=== PATIENT | female | born 1940 | race Caucasian/White ===

== ENCOUNTER 2021-09-07 15:15 | Inpatient (IN) | payer MEDICARE, BC, SELFPAY ==
[2021-09-07] VITALS (14 sets, daily range): BP systolic 107–138; BP diastolic 43–75; PULSE 71–89; RESP 15–31; TEMP 36.6–37.1; O2SAT 88–98; BMI 28.5
--- NOTE | ~2021-09-07 | CT_ITS ---
EXAMINATION: CT abdomen pelvis w con DATE: 09/07/2021 18:08 INDICATION: Right upper quadrant abdominal pain. Vomiting. Low-grade fever. History of bowel resectio n 5 years ago. TECHNIQUE: Computed tomography (CT) of the abdomen and pelvis was performed with 100 CC Omnipaque 350 intravenous contrast. Automated exposure control and iterative reconstruction technique were employe d. Exam dose: 569.56 mGy-cm total exam DLP. COMPARISON: None. FINDINGS: There is minimal atelectasis in the lower lung zones. Normal heart size. Prominent coronary artery calcifications. No pericardial or pleural effusion. Calcified right hilar and subcarinal lymph nodes. 1.3 x 1.7 cm right hepatic cyst. The gallbladder is present. No gallbladder wall thickening or pericholecystic fluid or fat stranding. No bile duct or pancreatic duct dilatation. No pancreatic mass lesion or calcification. Normal splen ic size. Normal morphology of the adrenal glands. 7 mm and a couple much smaller right renal cysts no urinary tract calculus or hydroureteronephrosis. There is atherosclerotic calcification of the abdominal aorta and iliac arteries but no aneurysm. No intraperitoneal or retroperitoneal or pelvic mass lesion or adenopathy or ascites is noted. There is a surgical anastomosis of the left colon. There is small bowel dilatation up to 3.6 cm diameter in the pelvic area. There are small bowel air-f luid levels. The distal ileum is decompressed, normal caliber. A focal zone of transition is suggeste d in the medial right lower abdomen. Differential diagnosis includes partial small bowel obstruction due to adhesions, adynamic ileus, enteritis. Multilevel severe degenerative disc disease of the lumbar spine. Rate 1 anterolisthesis at L4-5 due t o degenerative change at the apophyseal joints. IMPRESSION: Mild small bowel dilatation and air-fluid levels, possibly secondary to adhesions, sugge stion of a focal zone of transition in the medial right lower quadrant. Status post left colon resection 1.3 x 1.7 cm right hepatic cyst 7 mm and smaller right renal cysts Reviewed, dictated and finalized at [facility]. Reviewed, dictated and finalized at location A. ONAL BANKING ADVISOR IMPRESSION: Mild small bowel dilatation and air-fluid levels, possibly seconda ry to adhesions, suggestion of a focal zone of transition in the medial right l ower quadrant. Status post left colon resection 1.3 x 1.7 cm right hepatic cyst 7 mm and smaller right renal cysts
--- NOTE | ~2021-09-07 | XR_ITS ---
EXAMINATION: XR abdomen obstructive series EXAM DATE: 09/09/2021 05:57 INDICATION: Small bowel obstruction. TECHNIQUE: Frontal upright projection of the upper abdomen, frontal projection of the lower abdomen f or interpretation. Comparison is made to prior examination from 09/08/2021. FINDINGS: There is expected amount of colonic stool and gas. No small bowel dilation, nonobstructiv e bowel gas pattern. There are no suspicious calcifications identified. There is no organomegaly suspected. There is moderate to severe lumbar spondylosis. Mild lumbar levoscoliosis. There is no free intraperitoneal air. The lung bases are clear. IMPRESSION: Resolution of previously seen mildly dilated small bowel. Nonobstructive bowel gas patte rn. Reviewed, dictated and finalized at location B. O ENGINEERING TEACHER IMPRESSION: Resolution of previously seen mildly dilated small bowel. Nonobstr uctive bowel gas pattern.
--- NOTE | ~2021-09-07 | XR_ITS ---
EXAMINATION: XR abdomen obstructive series EXAM DATE: 09/08/2021 11:45 INDICATION: Abnormal CT scan. TECHNIQUE: Frontal projection of the upper abdomen, frontal projection lower abdomen/pelvis for inter pretation. There is no prior study for comparison. FINDINGS: No free intraperitoneal air. Several loops of mildly distended air-filled small bowel, ile us or partial obstruction. Expected amount of colonic stool and gas. Contrast within the bladder. Mil d to moderate lumbar levoscoliosis. Moderate to severe lumbar spondylosis. There is no organomegaly. IMPRESSION: Several mildly dilated small bowel loops, ileus or partial obstruction. Reviewed, dictated and finalized at location G. ICER INSTALLER IMPRESSION: Several mildly dilated small bowel loops, ileus or partial obstruc tion.
--- NOTE | ~2021-09-07 | XR_ITS ---
EXAMINATION: XR abdomen/kub 1V DATE: 09/10/2021 08:55 INDICATION: Small bowel obstruction. TECHNIQUE: A supine view of the abdomen on 2 radiographs was obtained. COMPARISON: CT abdomen and pelvis 09/07/2021 FINDINGS: There are no dilated loops of bowel. There is a paucity of stool in the colon. IMPRESSION: 1. Nonobstructive bowel gas pattern. Reviewed, dictated and finalized at location A. RY GOODS WORKER
--- NOTE | 2021-09-07 15:59 | ED.NAVMDI ---
HPI - Nausea/Vomiting/Diarrhea General Chief complaint: Nausea/Vomiting/Diarrhea Stated complaint: N/V/D Time Seen by Provider: 09/07/21 15:40 History of Present Illness HPI Narrative: History provided by son. Patient is a 81-year-old female presented the emergency room with complaints of multiple episodes of diarrhea and generalized weakness for the last 3 to 4 days. Patient has a history of vascular dementia. Reports that patient had a low-grade fever, decreased intake. Associated with right upper quadrant abdominal pain with a history of small bowel resection Related Data Home Medications Medication Instructions Recorded Confirmed Allergy Relief (loratadine) 09/07/21 amlodipine benzoate 09/07/21 divalproex 09/07/21 donepezil mg 09/07/21 escitalopram oxalate [Lexapro] mg 09/07/21 famotidine 09/07/21 lisinopril 09/07/21 memantine 09/07/21 Allergies Allergy/AdvReac Type Severity Reaction Status Date / Time azithromycin Allergy Unknown Verified 09/07/21 16:00 Review of Systems Review of Systems: CONSTITUTIONAL: Reports fever; denies chills, or sweats. EYES: Denies visual changes, redness, or discharge. ENT: Denies rhinorrhea, congestion, sore throat, or otalgia. CARDIOVASCULAR: Denies chest pain, palpitations, or edema. RESPIRATORY: Denies cough or dyspnea. GASTROINTESTINAL: Reports abdominal pain, nausea, vomiting, or diarrhea. GENITOURINARY: Denies dysuria or hematuria. SKIN: Denies rash or itching. MUSCULOSKELETAL: Denies back pain, joint pain, or myalgia. NEUROLOGIC: Denies headache, numbness, dizziness, or weakness. PSYCHIATRIC: Denies anxiety or depression. Exam Narrative: GENERAL: Well-appearing, well-nourished, and in no acute distress. HEAD: Normocephalic, atraumatic. EYES: PERRLA and EOMI. ENT: Nares clear, no rhinorrhea or epistaxis. Mucous membranes moist. Oropharynx without tonsillar hypertrophy exudate or other lesions. Bilateral TMs pearly [place]ura nonbulging NECK: Supple. No adenopathy or masses. No carotid bruits or JVD CHEST: Clear to auscultation. No respiratory distress. No wheezes rales or rhonchi HEART: Regular rate and rhythm. No murmur heard. Normal peripheral pulses. ABDOMEN: Soft, right upper quadrant tenderness, nondistended, normal active bowel sounds. EXTREMITIES: Normal range of motion. No edema. SKIN: Warm, dry, no rash. NEURO: No focal deficits. Alert and oriented x3. PSYCH: Normal mood and affect. Course Course Emergency Course: 1929: Dr. Vyas regarding patient's condition. Is agreeable with my plan of care to bring the patient in for observation with NG established, IV fluids. Vital Signs Vital signs: Vital Signs Temperature 36.7 C 09/07/21 15:22 Pulse Rate 89 09/07/21 15:22 Respiratory Rate 20 09/07/21 15:22 Blood Pressure 138/63 09/07/21 15:22 Pulse Oximetry 93 09/07/21 15:22 Temperature 36.7 C 09/07/21 15:22 Pulse Rate 75 09/07/21 18:22 Respiratory Rate 17 09/07/21 18:22 Blood Pressure 120/43 L 09/07/21 18:22 Pulse Oximetry 95 09/07/21 18:22 MDM - Nausea/Vomiting/Diarrhea MDM Narrative Medical decision making narrative: White count slightly elevated at 10.2. CMP shows a slightly azotemia. Otherwise unremarkable. CT scan shows a small bowel dilation and air-fluid levels possibly secondary to adhesions suggestive of small bowel obstruction in the right lower quadrant. Will admit patient to [facility] with an NG tube Lab Data Result diagrams: 09/07/21 16:03 09/07/21 16:03 Labs: Lab Results 09/07/21 09/07/21 09/07/21 Range/Units 16:03 16:03 16:03 WBC 10.2 H (4.5-10.0) K/mm3 RBC 4.49 (4.2-5.4) M/mm3 Hgb 14.0 (12.0-15.0) g/dL Hct 43.5 (37.0-47.0) % MCV 96.9 (80-100) fl MCH 31.2 (26-34) pg MCHC 32.2 (32-36) g/dl RDW 13.2 (11.5-14.5) % Plt Count 211 (150-375) k/mm3 MPV 10.9 H (7.4-10.4) fl Immature Gran % (Auto) 1.1 H (0-0.5) %
[2021-09-07 16:11] LABS: Basophils Absolute Auto 0.1 K/mm3 (0.0-0.1); Basophils Percent Auto 0.7 % (0.2-1.2); Eosinophils Absolute Auto 0.1 K/mm3 (0-0.3); Eosinophils Percent Auto 0.6 % (0-4.4); Hematocrit 43.5 % (37.0-47.0); Immature Granulocyte Absolute 0.11 K/mm3 (0.00-0.031); Immature Granulocyte Percent A 1.1 % (0-0.5); Lymphocytes Absolute Auto 2.95 K/mm3 (0.9-3.2); Lymphocytes Percent Auto 28.9 % (18.3-44.2); Mean Corpuscular HGB Conc 32.2 g/dl (32-36); Mean Corpuscular Hemoglobin 31.2 pg (26-34); Mean Corpuscular Volume 96.9 fl (80-100); Mean Platelet Volume 10.9 fl (7.4-10.4); Monocytes Absolute Auto 1.3 K/mm3 (0.1-0.6); Monocytes Percent Auto 12.8 % (2.6-8.5); Neutrophils Absolute Auto 5.7 K/mm3 (1.3-6.7); Neutrophils Percent Auto 55.9 % (45.5-73.1); Platelet Count Result 211 k/mm3 (150-375); Red Blood Count 4.49 M/mm3 (4.2-5.4); Red Cell Distribution Width 13.2 % (11.5-14.5); White Blood Count 10.2 K/mm3 (4.5-10.0)
[2021-09-07] MEDS: SODIUM CHLORIDE 0.9% IV 1,000 ML 250 ML IV CONT (16:19)
[2021-09-07 16:20] LABS: Alanine Aminotransferase 10 U/L (4-35); Albumin Level 3.9 g/dL (3.5-5.1); Alkaline Phosphatase 62 U/L (38-126); Anion Gap 11 mmol/L (8-16); Aspartate Amino Transferase 18 U/L (14-36); Bilirubin,Total 0.2 mg/dL (0.2-1.3); Blood Urea Nitrogen 33 mg/dL (7-17); Calcium 9.2 mg/dL (8.4-10.2); Carbon Dioxide 29 mmol/L (22-30); Chloride 100 mmol/L (98-107); Estimated CRCL calculation 33 ml/min; Estimated Glomerular Filt Rate 43; Glucose 94 mg/dL (65-110); Lipase 157 U/L (23-300); Potassium 3.1 mmol/L (3.4-5.0); Sodium 140 mmol/L (137-145)
[2021-09-07] MEDS: ONDANSETRON INJ 4 MG/2 ML VIAL IV PUSH (16:20)
[2021-09-07 16:25] LABS: Add Urine Microscopic? YES; Appearance Urine Clear (Clear); Bilirubin Urine Negative (Negative); Blood Urine Negative (Negative); Calcium Oxalate Crystals Urine Present /hpf; Color Urine Yellow (Yellow); Glucose Urine UA Negative (Negative); Ketones Urine 1+ mg/dL (Negative); Leukocyte Esterase Ur Negative LEU/UL (Negative); Mucus Urine Heavy /lpf; Nitrate Urine Negative (Negative); Protein Urine 2+ mg/dL (Negative); Squamous Epithelial Cell Urine Occasional /hpf (Few); Urobilinogen Urine Negative mg/dL (<2.0); WBC Urine 0-3 /hpf
[2021-09-07 16:48] LABS: Specific Grav Ur 1.035 (1.001-1.035)
--- NOTE | 2021-09-07 20:09 | PC.NURSE ---
attempted to insert NG tube with assistance to right nare without success. pt became very combative, verbally abusive, swing arms and tried to bite staff. dr castaneda notified and will hold off with insertion for now.
--- NOTE | 2021-09-07 20:29 | PM.IMHP ---
H&P: HPI History of Present Illness Date/Time: 09/07/21 20:29 Chief Complaint: Vomiting Narrative: 81-year-old female with past medical history of prior left colon resection, vascular dementia, depression GERD and hypertension who presented to the ER from [facility] via EMS due to 5 days a low-grade fever and vomiting. Patient is only oriented to name at baseline. She was complaining of abdominal pain on presentation to the ER. She is afebrile on presentation to the ER. She had no vomiting after arrival to the ER. CT of the abdomen pelvis with contrast demonstrate mild small bowel dilatation with air-fluid levels possibly secondary to adhesions with suggestion of focal zone of transition in the medial right lower quadrant. NG placement was attempted in the ER beat the patient became verbally and physically abusive with staff. Subsequently, NG tube was not placed. The patient points to her arm where her IV site is inserted when I ask her about having pain. However when I perform deep palpation the abdomen in the periumbilical region she has definite tenderness. Otherwise her abdomen is soft with normoactive bowel sounds. The patient is only oriented to her name. She will answer direct questions but is not carrying a conversation. 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 Smoking status: Unknown if ever smoked Alcohol intake: never Substance use: never Spiritual care concerns: No Meds Home Medications and Allergies Home Medications Medication Instructions Recorded Confirmed Type Allergy Relief (loratadine) 10 mg PO DAILY 09/07/21 09/07/21 History amlodipine benzoate 5 mg PO DAILY 09/07/21 09/07/21 History cholecalciferol (vitamin D3) 25 mcg PO DAILY 09/07/21 09/07/21 History [Vitamin D3] divalproex 125 mg PO TID 09/07/21 09/07/21 History donepezil 10 mg PO HS 09/07/21 09/07/21 History escitalopram oxalate [Lexapro] 10 mg PO DAILY 09/07/21 09/07/21 History famotidine 10 mg PO DAILY 09/07/21 09/07/21 History lisinopril 20 mg PO DAILY 09/07/21 09/07/21 History memantine 10 mg PO BID 09/07/21 09/07/21 History pentoxifylline 400 mg PO TID 09/07/21 09/07/21 History polyethylene glycol 3350 17 g PO DAILY 09/07/21 09/07/21 History pravastatin 60 mg PO HS 09/07/21 09/07/21 History quetiapine 50 mg PO BID 09/07/21 09/07/21 History Allergies Allergy/AdvReac Type Severity Reaction Status Date / Time azithromycin Allergy Unknown Verified 09/07/21 16:00 Vital Signs Vital Signs - 24 hr 09/07/21 15:22 09/07/21 15:31 09/07/21 15:46 Temperature 98.1 F Pulse Rate 89 86 86 Respiratory Rate 20 18 26 H Blood Pressure 138/63 129/71 123/63 Pulse Oximetry 93 93 93 09/07/21 16:01 09/07/21 16:16 09/07/21 16:31 Temperature Pulse Rate 85 87 86 Respiratory Rate 15 22 H 16 Blood Pressure 117/59 L 118/66 115/64 Pulse Oximetry 95 98 09/07/21 16:46 09/07/21 17:00 09/07/21 17:01 Temperature Pulse Rate 86 84 Respiratory Rate 17 18 31 H Blood Pressure 107/58 L 109/59 L Pulse Oximetry 8
--- NOTE | 2021-09-07 21:46 | ADMGEN ---
This patient, Albina Krueger, was admitted to Medical Room 343-01. Patient/family oriented to hospital policies and general routines including ID bracelet, bed and alarms, visiting hours, pain management, procedures, bathroom and other care routines, personal items, smoking policy, room service/diet, and visiting hours. Information on how to activate the Rapid Response Team has been discussed. Patient/Family are encouraged to report perceived risks to care and to ask questions if they do not understand what they are told or what they should do.
[2021-09-07] MEDS: SODIUM CHLORIDE 0.9% IV 1,000 ML 75 ML IV CONT (22:14)
[2021-09-08] VITALS (7 sets, daily range): BP systolic 131–159; BP diastolic 50–92; PULSE 64–73; RESP 16–22; TEMP 36.1–36.9; O2SAT 91–97
[2021-09-08] MEDS: POTASSIUM CHLORIDE INJ 40 MEQ in SODIUM CHLORIDE 0.9% IV 500 ML 100 MEQ IVPB (01:34)
[2021-09-08 05:57] LABS: Anion Gap 6 mmol/L (8-16); Blood Urea Nitrogen 30 mg/dL (7-17); Calcium 8.5 mg/dL (8.4-10.2); Carbon Dioxide 28 mmol/L (22-30); Chloride 106 mmol/L (98-107); Estimated CRCL calculation 39 ml/min; Estimated Glomerular Filt Rate 53; Glucose 86 mg/dL (65-110); Potassium 3.6 mmol/L (3.4-5.0); Sodium 140 mmol/L (137-145)
[2021-09-08] MEDS: SODIUM CHLORIDE 0.9% IV 1,000 ML 125 ML IV CONT ×2 (08:09→11:41)
--- NOTE | 2021-09-08 10:01 | PM.IMPN ---
Progress Note: A&P Assessment and Plan (1) Partial small bowel obstruction: Code(s): K56.600 - Partial intestinal obstruction, unspecified as to cause Status: Acute Assessment and Plan: Patient presents with diarrhea and weakness. CT scan showing mild small bowel dilatation with air-fluid levels possibly partial small-bowel obstruction. The transition point is in the right lower abdomen which correlates with her symptoms. Her symptoms have improved clinically. This may be enteritis given the fevers that were present prior to admission. She also has a history of ischemic bowel so would consider this in the etiology as well. No nausea or vomiting noted. She is refusing NG tube. Will repeat KUB. General surgery has been consulted. Continue NPO status at this time. Hold on antibiotics at this time. (2) Acute kidney injury: Code(s): N17.9 - Acute kidney failure, unspecified Status: Acute Assessment and Plan: Creatinine 1.2 on admission. With IV fluids creatinine has trended downward. Continue to monitor. Avoid nephrotoxic agents. (3) Dehydration: Code(s): E86.0 - Dehydration Status: Acute Assessment and Plan: Patient with dehydration related to her diarrhea. Renal function improving. Son states patient ?perked up? with fluids. Continue IV fluids. (4) Diarrhea: Qualifiers: Diarrhea type: unspecified type Qualified Code(s): R19.7 - Diarrhea, unspecified Code(s): R19.7 - Diarrhea, unspecified Status: Acute Assessment and Plan: Patient having diarrhea present on admission. This points more toward enteritis than partial small-bowel obstruction. Patient also having fevers prior to admission. Will follow clinically. Hold antibiotics at this time. (5) Hypokalemia: Code(s): E87.6 - Hypokalemia Status: Acute Assessment and Plan: Potassium mildly decreased at 3.1. This was replaced and potassium normal now. Continue to follow. (6) Vascular dementia: Code(s): F01.50 - Vascular dementia without behavioral disturbance Status: Inactive Assessment and Plan: Patient has a history of dementia with behavioral disturbance. She is on divalproex, Lexapro, Namenda and Seroquel. Will see what her KUB shows today. If this is showing normal bowel pattern, consider clear liquid diet and resuming some of her essential medications to prevent behavioral disturbance. If not, then will need IV divalproex. (7) DVT prophylaxis: Code(s): Z29.9 - Encounter for prophylactic measures, unspecified Status: Acute Assessment and Plan: Sheryl Barrera Date/time seen: 09/08/21 10:01 Interval history: 81yo female with dementia, COPD and HTN here for diarrhea, fever and generalized weakness. Assuming care. Chart reviewed. Patient is alert but confused thus unable to provide history. Son is in the room. Provides information that the patient had history bowel resection due to ischemic bowel. He also mentions that she was on B12 for her dementia but does not have a history of B12 deficiency. She does have a history of behavioral disorder related to her dementia. This is controlled with her medications. Patient refused NG tube last evening. Review of Systems Review of Systems: ROS unobtainable: Yes unobtainable due to mental status Exam Narrative: AF 98.4 147/92 73 22 97% ra Gen - NARD lying almost flat in bed Chest - CTA bilaterally, nml RR CV - RRR S1/S2 Abd -soft. Minimal tenderness. Positive bowel sounds. Ext - No pedal edema Neuro - Alert but confused Psych - Nml mood and affect. Pleasant and cooperative Skin - Warm and dry Objective Data Vital Signs Vital Signs: Vital Signs - 24 hr 09/07/21 15:22 09/07/21 15:31 09/07/21 15:46 Temperature 98.1 F Pulse Rate 89 86 86 Respiratory Rate 20 18 26 H Blood Pressure 138/63 129/71 123/63 Pulse Oximetry 9
[2021-09-08] MEDS: ENOXAPARIN 40 MG/0.4 ML SYRINGE SUB-Q (11:42)
[2021-09-08] MEDS: PANTOPRAZOLE SODIUM IV 40 MG VIAL IV PUSH (11:43)
--- NOTE | 2021-09-08 12:28 | PC.NURSE ---
On 09/08/21, the student, Marta Alonso, provided care and completed [email or web address] documentation on this patient. I have reviewed the student's documentation and agree with the findings.
--- NOTE | 2021-09-08 13:02 | PM.CNGS ---
Assessment and Plan Assessment and plan (1) Partial small bowel obstruction: Code(s): K56.600 - Partial intestinal obstruction, unspecified as to cause Status: Acute Assessment and Plan: Patient presented with vomiting, diarrhea, and low grade fevers. CT scan reviewed and discussed with her nephew. There is mildly dilated small bowel suggesting possible partial small bowel obstruction vs ileus vs enteritis. She does have a history of abdominal surgery that could cause intraabdominal adhesions, but given the diarrhea and fevers, this is more likely to be related to enteritis. Her abdomen is slightly distended with tenderness in the lower abdomen, but she has no peritoneal signs. We would recommend continuing to treat her conservatively. Will defer NG tube for now, and if she develops vomiting then we could consider trying to place an NG tube again. Her nephew feels that she may be more calm for NG placement if he is present, which we could try to coordinate if needed. She was complaining of nausea, so I kept her NPO. We could try clear liquids if she is no longer feeling nauseous. Obstructive series has also been done today, which still showed some mildly dilated loops of small bowel, but there is gas and stool noted in the colon. Will repeat plain films again tomorrow morning and monitor with serial abdominal exams. Encouraged staff to have her up to the chair and ambulate in the halls if tolerated. Thank you for allowing us to see the patient in consultation and we will continue to follow along with you. (2) Diarrhea: Qualifiers: Diarrhea type: unspecified type Qualified Code(s): R19.7 - Diarrhea, unspecified Code(s): R19.7 - Diarrhea, unspecified Status: Acute Assessment and Plan: Reportedly had diarrhea prior to admission, supporting the diagnosis of enteritis. She has not had any bowel movements since admission. If diarrhea returns, could consider stool studies. See plan above. (3) Dehydration: Code(s): E86.0 - Dehydration Status: Acute Assessment and Plan: Improving with IV fluid hydration. Likely related to the diarrhea and vomiting. Continue management per Hospitalist. Additional Plan I have discussed the patient's case and plan of care with Dr. Vyas. History of Present Illness Consult details Consult date: 09/08/21 Reason for consult: other (Possible partial small bowel obstruction) Requesting physician: Johnathan Pierre MD Narrative: This is a 81-year-old female with vascular dementia, HTN, and COPD, who resides at [facility] and was brought into the ER due to vomiting, diarrhea, and low-grade fever x 5 days. She is oriented to person at baseline and is unable to provide history. Her nephew and POA, Juan, is at the bedside and able to help assist in providing some history. The remaining information is obtained by review of her EMR. She was having vomiting and diarrhea over the past few days and had a reported fever of 99F. She was subsequently brought into the ER for evaluation. CT scan of the abdomen and pelvis showed mildly dilated small bowel with air-fluid levels with suggestion of a possible focal transition zone in the medial RLQ, suggesting possible partial small bowel obstruction, adynamic ileus, versus enteritis. Also noted is an anastomosis in the left colon, right hepatic cyst, and right renal cysts. Staff attempted to place an NG tube in the ER, but the patient became verbally and physically combative and the attempt was unsuccessful. She was admitted to the Hospitalist, made NPO, and started on IV fluids. Our service was consulted by the ED provider for possible partial small bowel obstruction. She is now seen on the medical floor. She does report lower abdominal pain, worse in the LLQ. She replies yes when asked if she is nauseated. Per nursing staff, she has not had any bowel movements or vomiting since admitted. Her nephew does note that she was passing a
[2021-09-08] MEDS: LORazepam INJ (*CRX) 2 MG/ML VIAL 0.5 MG IV PUSH (17:44)
[2021-09-08] MEDS: ONDANSETRON INJ 4 MG/2 ML VIAL IV PUSH (17:44)
[2021-09-09 00:03] VITALS: BP 148/67; PULSE 84; RESP 84; TEMP 36.7; O2SAT 19
[2021-09-09] MEDS: SODIUM CHLORIDE 0.9% IV 1,000 ML 125 ML IV CONT ×2 (03:05→11:06)
[2021-09-09 05:51] LABS: Basophils Absolute Auto 0.1 K/mm3 (0.0-0.1); Basophils Percent Auto 1.2 % (0.2-1.2); Eosinophils Absolute Auto 0.1 K/mm3 (0-0.3); Eosinophils Percent Auto 1.5 % (0-4.4); Hematocrit 40.4 % (37.0-47.0); Hemoglobin 13.1 g/dL (12.0-15.0); Immature Granulocyte Absolute 0.29 K/mm3 (0.00-0.031); Immature Granulocyte Percent A 3.9 % (0-0.5); Lymphocytes Percent Auto 24.4 % (18.3-44.2); Mean Corpuscular HGB Conc 32.4 g/dl (32-36); Mean Corpuscular Volume 95.7 fl (80-100); Mean Platelet Volume 11.1 fl (7.4-10.4); Monocytes Percent Auto 13.2 % (2.6-8.5); Neutrophils Absolute Auto 4.1 K/mm3 (1.3-6.7); Neutrophils Percent Auto 55.8 % (45.5-73.1); Platelet Count Result 179 k/mm3 (150-375); Red Blood Count 4.22 M/mm3 (4.2-5.4); Red Cell Distribution Width 12.5 % (11.5-14.5); White Blood Count 7.4 K/mm3 (4.5-10.0)
[2021-09-09 06:07] LABS: Albumin Level 3.2 g/dL (3.5-5.1); Alkaline Phosphatase 53 U/L (38-126); Anion Gap 6 mmol/L (8-16); Aspartate Amino Transferase 20 U/L (14-36); Bilirubin,Total 0.3 mg/dL (0.2-1.3); Blood Urea Nitrogen 19 mg/dL (7-17); Calcium 8.3 mg/dL (8.4-10.2); Carbon Dioxide 27 mmol/L (22-30); Chloride 106 mmol/L (98-107); Estimated CRCL calculation 48 ml/min; Estimated Glomerular Filt Rate > 60; Glucose 79 mg/dL (65-110); Magnesium 1.7 mg/dL (1.6-2.3); Potassium 3.5 mmol/L (3.4-5.0); Sodium 139 mmol/L (137-145)
[2021-09-09 06:18] VITALS: BP 154/64; PULSE 77; RESP 18; TEMP 35.4; O2SAT 93
[2021-09-09 06:28] LABS: Alanine Aminotransferase < 6 U/L (4-35)
[2021-09-09 07:04] LABS: Folic Acid 14.9 ng/mL (2.76->20)
[2021-09-09] MEDS: ENOXAPARIN 40 MG/0.4 ML SYRINGE SUB-Q (09:16)
[2021-09-09] MEDS: PANTOPRAZOLE SODIUM IV 40 MG VIAL IV PUSH (09:16)
--- NOTE | 2021-09-09 09:56 | PM.PNGS ---
Progress Note: A&P Assessment and Plan (1) Partial small bowel obstruction: Code(s): K56.600 - Partial intestinal obstruction, unspecified as to cause Status: Acute Assessment and Plan: Patient's daughter is at bedside this AM. She states that patient has had multiple problems with bowel obstructions in the past and thinks that at least one of her previous surgeries was related to this. Her xray looks improved today. Will give Dulcolax suppository. Allow ice chips for now and could consider clear liquids if bowels begin to move. Will get SBFT tomorrow if no significant improvement. Subjective Subjective Date/Time Seen: 09/09/21 09:56 Interval history: Minimal abdominal pain. No vomiting. Patient doesn't know if she's passing flatus or not. No BM's since being admitted. Exam GI: Inspection: non-distended GI Palp: Yes Soft to palpation, Yes Tenderness to palpation present (GI) (minimal generalized), No Guarding due to palpation present (GI) and No Rebound tenderness present Auscultation: Hypoactive bowel sounds present Objective Data Vital Signs Vital Signs: Vital Signs - 24 hr 09/08/21 11:54 09/08/21 16:58 09/08/21 20:00 Temperature 36.6 C 36.8 C Pulse Rate 66 64 64 Respiratory Rate 22 H 20 20 Blood Pressure 138/50 L 159/52 H Pulse Oximetry 91 96 96 09/08/21 23:34 09/09/21 00:03 09/09/21 06:18 Temperature 36.7 C 35.4 C L Pulse Rate 84 77 Respiratory Rate 84 H 18 Blood Pressure 148/67 H 154/64 H Pulse Oximetry 92 19 L 93 Intake/Output Intake/Output: Intake & Output 09/06/21 09/07/21 09/08/21 09/09/21 23:59 23:59 23:59 23:59 Intake Total 1999 0 Balance 1999 0 Meds/Results Medications: Active Medications Generic Name Dose Route Start Last Admin Trade Name Freq PRN Reason Stop Dose Admin Enoxaparin Sodium 40 mg 09/08/21 10:25 09/09/21 09:16 Enoxaparin 40 Mg/0.4 Ml Syringe SUB-Q 40 mg DAILY CHARBEL Administration Sodium Chloride 1,000 mls @ 125 mls/hr 09/07/21 19:10 09/09/21 03:50 Normal Saline Iv IV CONT Not Given .Q8H CHARBEL Lorazepam 0.5 mg 09/08/21 15:37 09/08/21 17:44 Lorazepam Inj (*Crx) 2 Mg/Ml Vial IV PUSH 0.5 mg Q6H PRN Administration Anxiety Ondansetron HCl 4 mg 09/07/21 20:08 09/08/21 17:44 Ondansetron Inj 4 Mg/2 Ml Vial IV PUSH 4 mg Q4H PRN Administration Nausea Pantoprazole Sodium 40 mg 09/09/21 09:00 09/09/21 09:16 Pantoprazole Sodium Iv 40 Mg Vial IV PUSH 40 mg QAM CHARBEL Administration Radiology Results: ITS Impressions Abdomen/Pelvis CT 09/07/21 18:44 IMPRESSION: Mild small bowel dilatation and air-fluid levels, possibly secondary to adhesions, suggestion of a focal zone of transition in the medial right lower quadrant. Status post left colon resection 1.3 x 1.7 cm right hepatic cyst 7 mm and smaller right renal cysts Abdomen X-Ray 09/09/21 09:12 IMPRESSION: Resolution of previously seen mildly dilated small bowel. Nonobstructive bowel gas pattern. Labs Labs: Laboratory Results - last 24 hr 09/09/21 09/09/21 05:14 05:14 WBC 7.4 RBC 4.22 Hgb 13.1 Hct 40.4 MCV 95.7 MCH 31.0 MCHC 32.4 RDW 12.5 Plt Count 179 MPV 11.1 H Immature Gran % (Auto) 3.9 H Neut % (Auto) 55.8 Lymph % (Auto) 24.4 [place] % (Auto) 13.2 H Eos % (Auto) 1.5 Baso % (Auto) 1.2 Lymph # (Auto) 1.80 [place] # (Auto) 1.0 H Eos # (Auto) 0.1 Baso # (Auto) 0.1 Abs Immat Gran (auto) 0.29 H Absolute Neuts (auto) 4.1 Absolute Nucleated RBC 0.0 Nucleated RBC % 0.0 Sodium 139 Potassium 3.5 Chloride 106 Carbon Dioxide 27 Anion Gap 6 L BUN 19 H D Creatinine 0.80 Estim Creat Clear Calc 48 Estimated GFR > 60 Glucose 79 Calcium 8.3 L Magnesium 1.7 Total Bilirubin 0.3 AST 20 ALT < 6 Alkaline Phosphatase 53 C-Reactive Protein 3.0 H Total Protein 6.0 L Albumin 3.2 L Vitamin B12 458.0 Folate 14.9
[2021-09-09] MEDS: BISACODYL 10 MG SUPPOSITORY RECTAL (11:06)
[2021-09-09 11:22] VITALS: O2SAT 93
--- NOTE | 2021-09-09 11:29 | WPDCDIQUERY2 ---
CDI Query Clarification Request -09/08 Partial small bowel obstruction, unspecified as to cause
--- NOTE | 2021-09-09 13:40 | PM.IMPN ---
Progress Note: A&P Assessment and Plan (1) Partial small bowel obstruction: Code(s): K56.600 - Partial intestinal obstruction, unspecified as to cause Status: Acute Assessment and Plan: Patient presents with diarrhea and weakness. CT scan showing mild small bowel dilatation with air-fluid levels possibly partial small-bowel obstruction. The transition point is in the right lower abdomen. This may be enteritis given the fevers that were present prior to admission. She also has a history of ischemic bowel so would consider this in the etiology as well. Repeat KUB showing resolution of the dilated SB. General surgery following and appreciate their input. Start clear liquids. Agree with suppository. Add back some home meds today as well. (2) Acute kidney injury: Code(s): N17.9 - Acute kidney failure, unspecified Status: Acute Assessment and Plan: Creatinine 1.2 on admission. With IV fluids creatinine has trended downward. Continue to monitor. Avoid nephrotoxic agents. (3) Dehydration: Code(s): E86.0 - Dehydration Status: Acute Assessment and Plan: Patient with dehydration related to her diarrhea. Renal function back to normal. Continue IV fluids until eating well. (4) Diarrhea: Qualifiers: Diarrhea type: unspecified type Qualified Code(s): R19.7 - Diarrhea, unspecified Code(s): R19.7 - Diarrhea, unspecified Status: Acute Assessment and Plan: Patient having diarrhea present on admission. This points more toward enteritis than partial small-bowel obstruction. Patient also having fevers prior to admission. Will follow clinically. No further diarrhea. Hold antibiotics at this time. (5) Hypokalemia: Code(s): E87.6 - Hypokalemia Status: Acute Assessment and Plan: Potassium was mildly decreased at 3.1 and was replaced. Potassium normal now. Continue to follow. (6) Vascular dementia: Code(s): F01.50 - Vascular dementia without behavioral disturbance Status: Inactive Assessment and Plan: Patient has a history of dementia with behavioral disturbance. She is on divalproex, Lexapro, Namenda and Seroquel. Her KUB today shows resolution of dilated SB. Will try to resume some of her essential medications to prevent behavioral disturbance. (7) DVT prophylaxis: Code(s): Z29.9 - Encounter for prophylactic measures, unspecified Status: Acute Assessment and Plan: Lovenox Subjective Date/time seen: 09/09/21 13:40 Interval history: 81yo female with dementia, COPD and HTN here for diarrhea, fever and generalized weakness. Patient is alert but confused thus unable to provide history. Niece in the room and case discussed. RN states no issues overngiht with the patient. Exam Narrative: AF 98.0 154/64 77 18 93% ra Gen - NARD lying almost flat in bed Chest - CTA bilaterally, nml RR CV - RRR S1/S2 Abd -soft. Pain in the LLQ. +BS Ext - No pedal edema Neuro - Alert but confused Psych - Nml mood and affect. Pleasant and cooperative Skin - Warm and dry Objective Data Vital Signs Vital Signs: Vital Signs - 24 hr 09/08/21 16:58 09/08/21 20:00 09/08/21 23:34 Temperature 98.2 F Pulse Rate 64 64 Respiratory Rate 20 20 Blood Pressure 159/52 H Pulse Oximetry 96 96 92 09/09/21 00:03 09/09/21 06:18 09/09/21 11:22 Temperature 98.0 F 95.7 F L Pulse Rate 84 77 Respiratory Rate 84 H 18 Blood Pressure 148/67 H 154/64 H Pulse Oximetry 19 L 93 93 Intake/Output Intake/Output: Intake & Output 09/06/21 09/07/21 09/08/21 09/09/21 23:59 23:59 23:59 23:59 Intake Total 1999 1000 Output Total 200 Balance 1999 800 Meds/Results Medications: Active Medications Generic Name Dose Route Start Last Admin Trade Name Freq PRN Reason Stop Dose Admin Enoxaparin Sodium 40 mg 09/08/21 10:25 09/09/21 09:16 Enoxaparin 40 Mg/0.4
[2021-09-09] MEDS: amLODIPine BESYLATE 5 MG TABLET PO (15:26)
[2021-09-09 15:33] VITALS: BP 166/71; PULSE 79; RESP 18; TEMP 36.7; O2SAT 96
[2021-09-09] MEDS: DIVALPROEX SODIUM DR 125 MG TABEC PO (17:03)
[2021-09-09 20:04] VITALS: RESP 18; O2SAT 97
[2021-09-09] MEDS: QUEtiapine FUMARATE 25 MG TABLET 50 MG PO (20:56)
[2021-09-09] MEDS: DONEPEZIL HCL 10 MG TABLET PO (20:56)
[2021-09-09] MEDS: MEMANTINE 10 MG TABLET PO (20:57)
[2021-09-09] MEDS: DIVALPROEX SODIUM DR 250 MG TABEC PO (20:57)
[2021-09-09] MEDS: SODIUM CHLORIDE 0.9% IV 1,000 ML 70 ML IV CONT (22:29)
[2021-09-10 00:08] VITALS: BP 126/78; PULSE 89; RESP 18; TEMP 36.6; O2SAT 100
[2021-09-10 05:23] LABS: Hematocrit 37.3 % (37.0-47.0); Hemoglobin 12.4 g/dL (12.0-15.0); Mean Corpuscular HGB Conc 33.2 g/dl (32-36); Mean Corpuscular Hemoglobin 30.7 pg (26-34); Mean Corpuscular Volume 92.3 fl (80-100); Mean Platelet Volume 10.7 fl (7.4-10.4); Platelet Count Result 180 k/mm3 (150-375); Red Blood Count 4.04 M/mm3 (4.2-5.4); Red Cell Distribution Width 12.1 % (11.5-14.5); White Blood Count 7.6 K/mm3 (4.5-10.0)
[2021-09-10 06:17] LABS: Albumin Level 3.1 g/dL (3.5-5.1); Anion Gap 4 mmol/L (8-16); Blood Urea Nitrogen 10 mg/dL (7-17); Calcium 8.1 mg/dL (8.4-10.2); Carbon Dioxide 28 mmol/L (22-30); Chloride 102 mmol/L (98-107); Estimated CRCL calculation 48 ml/min; Estimated Glomerular Filt Rate > 60; Glucose 103 mg/dL (65-110); Magnesium 1.5 mg/dL (1.6-2.3); Phosphorus 2.6 mg/dL (2.5-4.5); Sodium 134 mmol/L (137-145)
[2021-09-10] MEDS: ESCITALOPRAM OXALATE 10 MG TABLET PO (08:23)
[2021-09-10] MEDS: lisinopriL 10 MG TABLET PO (08:23)
[2021-09-10] MEDS: amLODIPine BESYLATE 5 MG TABLET PO (08:23)
[2021-09-10] MEDS: PANTOPRAZOLE SODIUM IV 40 MG VIAL IV PUSH (08:23)
[2021-09-10] MEDS: DIVALPROEX SODIUM DR 125 MG TABEC PO ×2 (08:23→17:29)
[2021-09-10] MEDS: MEMANTINE 10 MG TABLET PO ×2 (08:23→21:01)
[2021-09-10] MEDS: MAGNESIUM SULF 2 GM/WATER 50ML 2 GM/50 ML BAG IVPB (08:23)
[2021-09-10] MEDS: POTASSIUM CHLORIDE 20 MEQ PACKET (FOR LIQUID) 40 MEQ PO (08:23)
[2021-09-10] MEDS: ENOXAPARIN 40 MG/0.4 ML SYRINGE SUB-Q (08:24)
[2021-09-10] MEDS: QUEtiapine FUMARATE 25 MG TABLET 50 MG PO ×2 (08:24→21:01)
[2021-09-10 08:39] VITALS: BP 146/77; PULSE 68; RESP 20; TEMP 36.7; O2SAT 97
--- NOTE | 2021-09-10 12:11 | PM.PNGS ---
Progress Note: A&P Assessment and Plan (1) Partial small bowel obstruction: Code(s): K56.600 - Partial intestinal obstruction, unspecified as to cause Status: Acute Assessment and Plan: KUB this morning showed nonobstructive bowel gas pattern. Flatus but no BM yet. Continue clear liquids. Stimulate bowels, will start Miralax. Additional Plan I have discussed the plan of care with Dr. Vyas. Subjective Subjective Date/Time Seen: 09/10/21 10:11 Patient reports: flatus and no bowel movement Interval history: Patient seen and examined this morning with no family at the bedside. Patient has dementia and is unable to provide history. Per nursing, she has tolerated clear liquids for dinner last night and this morning for breakfast. Nursing reports hearing the patient passing gas today but no BM yet. Review of Systems Review of Systems: ROS unobtainable: Yes unobtainable due to medical condition Exam Const: General: comfortable, no acute distress and alert Orientation/consciousness: oriented to person, No oriented to place and No oriented to time GI: Inspection: non-distended GI Palp: Yes Soft to palpation, Yes Tenderness to palpation present (GI) (minimal, diffuse), No Guarding due to palpation present (GI) and No Rebound tenderness present Auscultation: Hypoactive bowel sounds present Psych: Insight: Limited insight present (Psych) Objective Data Vital Signs Vital Signs: Vital Signs - 24 hr 09/09/21 15:33 09/09/21 20:04 09/10/21 00:08 Temperature 98.1 F 97.8 F Pulse Rate 79 89 Respiratory Rate 18 18 18 Blood Pressure 166/71 H 126/78 Pulse Oximetry 96 97 100 09/10/21 08:39 Temperature 98.0 F Pulse Rate 68 Respiratory Rate 20 Blood Pressure 146/77 H Pulse Oximetry 97 Intake/Output Intake/Output: Intake & Output 09/07/21 09/08/21 09/09/21 09/10/21 23:59 23:59 23:59 23:59 Intake Total 1999 2120 75 Output Total 200 600 Balance 1999 1920 -525 Meds/Results Medications: Active Medications Generic Name Dose Route Start Last Admin Trade Name Freq PRN Reason Stop Dose Admin Amlodipine Besylate 5 mg 09/09/21 14:00 09/10/21 08:23 Amlodipine Besylate 5 Mg Tablet PO 5 mg DAILY CHARBEL Administration Divalproex Sodium 250 mg 09/09/21 21:00 09/09/21 20:[address] 250 Mg Tabec PO 250 mg HS CHARBEL Administration Divalproex Sodium 125 mg 09/09/21 17:00 09/10/21 08:[address] 125 Mg Tabec PO 125 mg BID CHARBEL Administration Donepezil HCl 10 mg 09/09/21 21:00 09/09/21 20:56 Donepezil Hcl 10 Mg Tablet PO 10 mg HS CHARBEL Administration Enoxaparin Sodium 40 mg 09/08/21 10:25 09/10/21 08:24 Enoxaparin 40 Mg/0.4 Ml Syringe SUB-Q 40 mg DAILY CHARBEL Administration Escitalopram Oxalate 10 mg 09/10/21 09:00 09/10/21 08:23 Escitalopram Oxalate 10 Mg Tablet PO 10 mg DAILY CHARBEL Administration Lisinopril 10 mg 09/10/21 09:00 09/10/21 08:23 Lisinopril 10 Mg Tablet PO 10 mg DAILY CHARBEL Administration Lorazepam 0.5 mg 09/08/21 15:37 09/08/21 17:44 Lorazepam Inj (*Crx) 2 Mg/Ml Vial IV PUSH 0.5 mg Q6H PRN Administration Anxiety Memantine 10 mg 09/09/21 21:00 09/10/21 08:23 Memantine 10 Mg Tablet PO 10 mg Q12HR CHARBEL Administration Pantoprazole Sodium 40 mg 09/09/21 09:00 09/10/21 08:23 Pantoprazole Sodium Iv 40 Mg Vial IV PUSH 40 mg QAM CHARBEL Administration Quetiapine Fumarate 50 mg 09/09/21 21:00 09/10/21 08:24 Quetiapine Fumarate 25 Mg Tablet PO 50 mg Q12HR CHARBEL Administration Radiology Results: ITS Impressions Abdomen/Pelvis CT 09/07/21 18:44 IMPRESSION: Mild small bowel dilatation and air-fluid levels, possibly secondary to adhesions, suggestion of a focal zone of transition in the medial right lower quadrant. Status post left colon resection 1.3 x 1.7 cm right hepatic cyst 7 mm and smaller right renal cysts Abdomen X-Ray 09/10/21 08:56
[2021-09-10] MEDS: polyethylene glycoL 3350 17 GM POWD.PACK PO (14:04)
[2021-09-10 14:59] VITALS: O2SAT 93
--- NOTE | 2021-09-10 15:52 | PM.IMPN ---
Progress Note: A&P Assessment and Plan (1) Partial small bowel obstruction: Code(s): K56.600 - Partial intestinal obstruction, unspecified as to cause Status: Acute Assessment and Plan: Patient presents with diarrhea and weakness. CT scan showing mild small bowel dilatation with air-fluid levels possibly partial small-bowel obstruction. The transition point is in the right lower abdomen. This may be enteritis given the fevers and diarrhea. She also has a history of ischemic bowel so would consider this in the etiology as well. Repeat KUB today showing nonobstructive bowel gas pattern. General surgery following and appreciate their input. Continue clear liquids. Follow. (2) Acute kidney injury: Code(s): N17.9 - Acute kidney failure, unspecified Status: Acute Assessment and Plan: Creatinine 1.2 on admission. With IV fluids creatinine has normalized. Continue to monitor. Avoid nephrotoxic agents. (3) Dehydration: Code(s): E86.0 - Dehydration Status: Acute Assessment and Plan: Patient with dehydration related to her diarrhea. Renal function back to normal. Okay to stop IV fluids (4) Diarrhea: Qualifiers: Diarrhea type: unspecified type Qualified Code(s): R19.7 - Diarrhea, unspecified Code(s): R19.7 - Diarrhea, unspecified Status: Acute Assessment and Plan: Patient was having diarrhea prior to admission. This points more toward enteritis than partial small-bowel obstruction. Patient also having fevers prior to admission. No further diarrhea. Hold antibiotics at this time. Will follow clinically. (5) Hypokalemia: Code(s): E87.6 - Hypokalemia Status: Acute Assessment and Plan: Potassium was mildly decreased at 3.1 and was replaced. Potassium low again and replacement ordered. Mag low as well and replaced. Continue to follow. (6) Vascular dementia: Code(s): F01.50 - Vascular dementia without behavioral disturbance Status: Inactive Assessment and Plan: Patient has a history of dementia with behavioral disturbance. She is on divalproex, Lexapro, Namenda and Seroquel at home and these have annabel resumed. Mood stable. (7) DVT prophylaxis: Code(s): Z29.9 - Encounter for prophylactic measures, unspecified Status: Acute Assessment and Plan: Lovenox Subjective Date/time seen: 09/10/21 15:52 Interval history: 81yo female with dementia, COPD and HTN here for diarrhea, fever and generalized weakness. Patient alert but confused. Tolerating clear liquid. No bowel movements. Review of Systems Review of Systems: ROS unobtainable: Yes unobtainable due to mental status Exam Narrative: AF 98.0 146/77 68 20 97% ra Gen - NARD Chest - CTA bilaterally, nml RR CV - RRR S1/S2 Abd -soft. Pain in the lower abdomen. Ext - No pedal edema Neuro - Alert but confused Psych - Nml mood and affect. Skin - Warm and dry Objective Data Vital Signs Vital Signs: Vital Signs - 24 hr 09/09/21 20:04 09/10/21 00:08 09/10/21 08:39 Temperature 97.8 F 98.0 F Pulse Rate 89 68 Respiratory Rate 18 18 20 Blood Pressure 126/78 146/77 H Pulse Oximetry 97 100 97 09/10/21 14:59 Temperature Pulse Rate Respiratory Rate Blood Pressure Pulse Oximetry 93 Intake/Output Intake/Output: Intake & Output 09/07/21 09/08/21 09/09/21 09/10/21 23:59 23:59 23:59 23:59 Intake Total 1999 2120 1145 Output Total 200 600 Balance 1999 1920 545 Meds/Results Medications: Active Medications Generic Name Dose Route Start Last Admin Trade Name Freq PRN Reason Stop Dose Admin Amlodipine Besylate 5 mg 09/09/21 14:00 09/10/21 08:23 Amlodipine Besylate 5 Mg Tablet PO 5 mg DAILY CHARBEL Administration Divalproex Sodium 250 mg 09/09/21 21:00 09/09/21 20:[address] 250 Mg Tabec PO 250 mg HS CHARBEL Administration Divalproex Sodium 1
[2021-09-10 16:35] VITALS: BP 138/69; PULSE 65; RESP 20; TEMP 36.8; O2SAT 97
[2021-09-10 20:17] VITALS: O2SAT 91
[2021-09-10] MEDS: DONEPEZIL HCL 10 MG TABLET PO (21:01)
[2021-09-10] MEDS: DIVALPROEX SODIUM DR 250 MG TABEC PO (21:01)
[2021-09-10 21:03] VITALS: BP 149/86; PULSE 69; RESP 16; TEMP 36.3; O2SAT 95
[2021-09-11 05:34] LABS: Anion Gap 3 mmol/L (8-16); Blood Urea Nitrogen 7 mg/dL (7-17); Calcium 8.1 mg/dL (8.4-10.2); Carbon Dioxide 30 mmol/L (22-30); Chloride 103 mmol/L (98-107); Estimated CRCL calculation 43 ml/min; Estimated Glomerular Filt Rate 60; Glucose 96 mg/dL (65-110); Potassium 3.3 mmol/L (3.4-5.0); Sodium 136 mmol/L (137-145)
[2021-09-11 06:31] VITALS: BP 152/64; PULSE 57; RESP 16; TEMP 36.5; O2SAT 94
[2021-09-11 08:00] VITALS: PULSE 57; RESP 16; O2SAT 94
--- NOTE | 2021-09-11 08:09 | PM.PNGS ---
Progress Note: A&P Assessment and Plan (1) Partial small bowel obstruction: Code(s): K56.600 - Partial intestinal obstruction, unspecified as to cause Status: Acute Assessment and Plan: Patient tolerating diet. Stimulate bowels prn. OK to discharge from surgical standpoint. Subjective Subjective Date/Time Seen: 09/11/21 08:09 Interval history: Patient tolerating diet. No complaints this morning, but unable to give any consistent history of symptoms or bowel function. Exam GI: Inspection: non-distended GI Palp: Yes Soft to palpation, No Tenderness to palpation present (GI) and No Guarding due to palpation present (GI) Objective Data Vital Signs Vital Signs: Vital Signs - 24 hr 09/10/21 08:39 09/10/21 14:59 09/10/21 16:35 Temperature 36.7 C 36.8 C Pulse Rate 68 65 Respiratory Rate 20 20 Blood Pressure 146/77 H 138/69 Pulse Oximetry 97 93 97 09/10/21 20:17 09/10/21 21:03 09/11/21 06:31 Temperature 36.3 C L 36.5 C Pulse Rate 69 57 L Respiratory Rate 16 16 Blood Pressure 149/86 H 152/64 H Pulse Oximetry 91 95 94 Intake/Output Intake/Output: Intake & Output 09/08/21 09/09/21 09/10/21 09/11/21 23:59 23:59 23:59 23:59 Intake Total 1999 2120 1165 Output Total 200 1600 Balance 1999 5310 -167 Meds/Results Medications: Active Medications Generic Name Dose Route Start Last Admin Trade Name Freq PRN Reason Stop Dose Admin Amlodipine Besylate 5 mg 09/09/21 14:00 09/10/21 08:23 Amlodipine Besylate 5 Mg Tablet PO 5 mg DAILY CHARBEL Administration Bisacodyl 10 mg 09/11/21 07:43 Bisacodyl 10 Mg Suppository RECTAL QAM PRN Constipation Divalproex Sodium 250 mg 09/09/21 21:00 09/10/21 21:[address] 250 Mg Tabec PO 250 mg HS CHARBEL Administration Divalproex Sodium 125 mg 09/09/21 17:00 09/10/21 17:[address] 125 Mg Tabec PO 125 mg BID CHARBEL Administration Donepezil HCl 10 mg 09/09/21 21:00 09/10/21 21:01 Donepezil Hcl 10 Mg Tablet PO 10 mg HS CHARBEL Administration Enoxaparin Sodium 40 mg 09/08/21 10:25 09/10/21 08:24 Enoxaparin 40 Mg/0.4 Ml Syringe SUB-Q 40 mg DAILY CHARBEL Administration Escitalopram Oxalate 10 mg 09/10/21 09:00 09/10/21 08:23 Escitalopram Oxalate 10 Mg Tablet PO 10 mg DAILY CHARBEL Administration Lisinopril 20 mg 09/11/21 09:00 Lisinopril 20 Mg Tablet PO DAILY CHARBEL Lorazepam 0.5 mg 09/08/21 15:37 09/08/21 17:44 Lorazepam Inj (*Crx) 2 Mg/Ml Vial IV PUSH 0.5 mg Q6H PRN Administration Anxiety Memantine 10 mg 09/09/21 21:00 09/10/21 21:01 Memantine 10 Mg Tablet PO 10 mg Q12HR CHARBEL Administration Pantoprazole Sodium 40 mg 09/11/21 09:00 Pantoprazole 40 Mg Tablet PO QAM CHARBEL Polyethylene Glycol 17 gm 09/10/21 12:30 09/10/21 14:04 Polyethylene Glycol 3350 17 Gm Powd.Pack PO 17 gm QAM CHARBEL Administration Quetiapine Fumarate 50 mg 09/09/21 21:00 09/10/21 21:01 Quetiapine Fumarate 25 Mg Tablet PO 50 mg Q12HR CHARBEL Administration Radiology Results: ITS Impressions Abdomen/Pelvis CT 09/07/21 18:44 IMPRESSION: Mild small bowel dilatation and air-fluid levels, possibly secondary to adhesions, suggestion of a focal zone of transition in the medial right lower quadrant. Status post left colon resection 1.3 x 1.7 cm right hepatic cyst 7 mm and smaller right renal cysts Abdomen X-Ray 09/10/21 08:56 IMPRESSION: 1. Nonobstructive bowel gas pattern. Labs Labs: Laboratory Results - last 24 hr 09/11/21 04:54 Sodium 136 L Potassium 3.3 L Chloride 103 Carbon Dioxide 30 Anion Gap 3 L BUN 7 Creatinine 0.90 Estim Creat Clear Calc 43 Estimated GFR 60 Glucose 96 Calcium 8.1 L Magnesium 2.0 Quality VTE Prophylaxis VTE prophylaxis: mechanical ordered (SCDs)
[2021-09-11] MEDS: POTASSIUM CHLORIDE 20 MEQ PACKET (FOR LIQUID) 40 MEQ PO (09:14)
[2021-09-11] MEDS: QUEtiapine FUMARATE 25 MG TABLET 50 MG PO (09:16)
[2021-09-11] MEDS: amLODIPine BESYLATE 5 MG TABLET PO (09:16)
[2021-09-11] MEDS: MEMANTINE 10 MG TABLET PO (09:17)
[2021-09-11] MEDS: DIVALPROEX SODIUM DR 125 MG TABEC PO (09:17)
[2021-09-11] MEDS: PANTOPRAZOLE 40 MG TABLET PO (09:17)
[2021-09-11] MEDS: ESCITALOPRAM OXALATE 10 MG TABLET PO (09:17)
[2021-09-11] MEDS: ENOXAPARIN 40 MG/0.4 ML SYRINGE SUB-Q (09:18)
[2021-09-11] MEDS: lisinopriL 20 MG TABLET PO (09:18)
[2021-09-11] MEDS: polyethylene glycoL 3350 17 GM POWD.PACK PO (09:19)
--- NOTE | 2021-09-11 11:12 | PM.DS ---
DS: Admitting Diagnosis Discharge Date 09/11/21 Admitting Diagnosis Diarrhea, fever and generalized weakness. DS: Discharge Diagnosis Discharge Diagnosis (1) Partial small bowel obstruction: Code(s): K56.600 - Partial intestinal obstruction, unspecified as to cause Status: Acute Assessment and Plan: Patient presents with diarrhea and weakness. CT scan of the abdomen and pelvis showing mild small bowel dilatation with air-fluid levels possibly partial small-bowel obstruction versus enteritis. The transition point is in the right lower abdomen. This may be enteritis given the fevers and diarrhea. She also has a history of ischemic bowel so this was considered as well. Repeat KUB showing nonobstructive bowel gas pattern. General surgery was consulted and appreciate their input. She was started on clear liquid diet. We instituted a bowel regiment. She began to pass stool. Abdominal pain resolved. We advanced her diet which she tolerated well. (2) Acute kidney injury: Code(s): N17.9 - Acute kidney failure, unspecified Status: Acute Assessment and Plan: Creatinine was 1.2 on admission. With IV fluids creatinine has normalized. Related to dehydration from diarrhea. (3) Dehydration: Code(s): E86.0 - Dehydration Status: Acute Assessment and Plan: Patient with dehydration related to her diarrhea. Renal function back to normal. (4) Diarrhea: Qualifiers: Diarrhea type: unspecified type Qualified Code(s): R19.7 - Diarrhea, unspecified Code(s): R19.7 - Diarrhea, unspecified Status: Acute Assessment and Plan: Patient was having diarrhea prior to admission. This points more toward enteritis than partial small-bowel obstruction. Patient also having fevers prior to admission. No further diarrhea. She was not treated with antibiotics. When stool function improved, she was not having diarrhea. (5) Hypokalemia: Code(s): E87.6 - Hypokalemia Status: Acute Assessment and Plan: Potassium was low and replacement ordered. Mag low as well and replaced. (6) Vascular dementia: Code(s): F01.50 - Vascular dementia without behavioral disturbance Status: Inactive Assessment and Plan: Patient has a history of dementia with behavioral disturbance. She is on divalproex, Lexapro, Namenda and Seroquel at home and these were able to be resumed once she was taking clear liquids. Mood remained stable and there was no behavioral disturbance during hospital course. DS: Summary Hospital Course Reason for hospitalization: 81yo female with dementia, COPD and HTN here for diarrhea, fever and generalized weakness. Please see H&P for details Hospital Course: Please see above for details of hospital course. Status at Discharge Cognitive/behavioral status at discharge: Stable Time Spent with Patient Time attestation: Total time spent providing and/or coordinating discharge services: 35 minutes Time spent: Greater than 30 minutes Specific discharge activities: Discussed with nephew. All questions answered. Exam Narrative: AF 97.7 152/64 57 16 94% ra Gen - NARD Chest -lungs clear anteriorly. CV - RRR S1/S2 Abd -soft. Nontender. Nondistended. Positive bowel sounds Ext - No pedal edema Neuro - Alert but confused Psych - Nml mood and affect. Skin - Warm and dry DS: Data Data Completed and Pending Labs on day of discharge: Labs from last 24 hours 09/11/21 04:54 Sodium 136 L Potassium 3.3 L Chloride 103 Carbon Dioxide 30 Anion Gap 3 L BUN 7 Creatinine 0.90 Estim Creat Clear Calc 43 Estimated GFR 60 Glucose 96 Calcium 8.1 L Magnesium 2.0 Discharge Plan Discharge Attending physician on discharge: Heath Hernandez Consulting providers: Esdras Vyas Discharging Clinician: Heath Hernandez Anticipated Discharge Date/Time: 0
[2021-09-11 12:48] LABS: EDCOVIDSCREEN Negative (Negative)
[2021-09-11 14:00] VITALS: BP 136/67; PULSE 85; RESP 18; TEMP 36.2; O2SAT 96
== END 2021-09-11 14:38 | DRG 392 ==
LOC: ANHED 19:12 → ANH3MED 20:46
PROVIDERS: Emergency Medicine; Admitting Provider Internal Medicine; Emergency Provider Nurse Practitioner Family; PCP Nurse Practitioner Family; Visit Provider Internal Medicine
DX: K52.9 Noninfective gastroenteritis and colitis, unspecified (principal); N17.9 Acute kidney failure, unspecified; I10 Essential (primary) hypertension; Z20.822 Contact with and (suspected) exposure to COVID-19; Z90.49 Acquired absence of other specified parts of digestive tract; F01.50 Vascular dementia, unspecified severity, without behavioral disturbance, psychotic disturbance, mood disturbance, and anxiety; F32.9 Major depressive disorder, single episode, unspecified; K21.9 Gastro-esophageal reflux disease without esophagitis; J44.9 Chronic obstructive pulmonary disease, unspecified; I25.10 Atherosclerotic heart disease of native coronary artery without angina pectoris; E78.5 Hyperlipidemia, unspecified; E87.6 Hypokalemia; Z29.9 Encounter for prophylactic measures, unspecified; Z79.899 Other long term (current) drug therapy; Z88.1 Allergy status to other antibiotic agents; R50.9 Fever, unspecified
CPT/HCPCS: 36415; 74018; 74019; 74177; 80048; 80053; 80069; 81001; 82607; 82746; 83690; 83735; 85025; 85027; 86140; 87426; 96361; 96372; 96374; 96375; 99285; A9270; C9113; C9803; G0378; J1650; J2060; J2405; J3475; J3480; J7030; J7040; Q9967

== ENCOUNTER 2024-06-21 21:03 | Emergency (ER) | payer OTHER, MEDICARE, SELFPAY ==
[2024-06-21] VITALS (7 sets, daily range): BP systolic 176–207; BP diastolic 75–138; PULSE 70–82; RESP 10–22; TEMP 36.4–37.4; O2SAT 95–99
--- NOTE | 2024-06-21 22:48 | ED_ITS ---
HPI - Nausea/Vomiting/Diarrhea General Chief complaint: Nausea/Vomiting/Diarrhea Stated complaint: Altered LOC from [place] Time Seen by Provider: 06/21/24 22:20 History of Present Illness HPI Narrative: Patient is an 84-year-old female who presents to the ER with concerns of vomiting and diarrhea. Her nephew is with her during time of exam and he reports there was not a nurse at her memory care unit this evening so the accounting manager assistant controller called the EMS after patient started vomiting and having diarrhea for about 5 hours. Patient's nephew reports she has had dementia since 2018 and was recently placed on hospice. He reports hospice was initiated because patient had stopped taking her medications. Patient's nephew reports patient is usually pleasantly confused but tonight she has been combative. He is unaware of any recent fevers, congestion, or coughing. Patient's nephew reports this GI bug has been going around the memory care unit. Related Data Home Medications ?Medication ?Instructions ?Recorded ?Confirmed ?Last Taken ?Type Allergy Relief (loratadine) 10 mg PO DAILY 09/07/21 09/07/21 Unknown History amlodipine benzoate 5 mg PO DAILY 09/07/21 09/07/21 Unknown History cholecalciferol (vitamin D3) 25 25 mcg PO DAILY 09/07/21 09/07/21 Unknown History mcg (1,000 unit) tablet (Vitamin D3) divalproex 125 mg PO TID 09/07/21 09/07/21 Unknown History donepezil 10 mg tablet 10 mg PO HS 09/07/21 09/07/21 Unknown History escitalopram oxalate 10 mg tablet 10 mg PO DAILY 09/07/21 09/07/21 Unknown History (Lexapro) famotidine 10 mg tablet 10 mg PO DAILY 09/07/21 09/07/21 Unknown History lisinopril 20 mg tablet 20 mg PO DAILY 09/07/21 09/07/21 Unknown History memantine 10 mg PO BID 09/07/21 09/07/21 Unknown History pentoxifylline 400 mg 400 mg PO TID 09/07/21 09/07/21 Unknown History tablet,extended release polyethylene glycol 3350 17 gram 17 g PO DAILY 09/07/21 09/07/21 Unknown History oral powder packet pravastatin 40 mg tablet 60 mg PO HS 09/07/21 09/07/21 Unknown History quetiapine 50 mg PO BID 09/07/21 09/07/21 Unknown History Allergies Allergy/AdvReac Type Severity Reaction Status Date / Time azithromycin Allergy Unknown Verified 09/07/21 16:00 Review of Systems Review of Systems: All systems reviewed & are unremarkable except as noted in HPI and below PMFSH Past Medical History Medical History Atherosclerotic heart disease Hyperlipidemia 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 Her nephew, Juan, is her durable healthcare POA. He reports she is independent in activity and ambulation at baseline. She is oriented x 1 at baseline. She is a DNR. Smoking status: Unknown if ever smoked Alcohol intake: never Substance use: never Living arrangements: other Occupation/Education: retired Gender identity (if verbalized by the patient): Female Spiritual care concerns: No Exam Narrative: GENERAL: Ill-appearing as evidenced by occasional grimacing, well-nourished, non-toxic, in no acute distress. HEAD: Normocephalic, atraumatic. NECK: Supple. No adenopathy, no masses. RESPIRATORY: Airway patent, respirations nonlabored. Clear to auscultation bilaterally, no rales, rhonchi, wheezing. CARDIOVASCULAR: Regular rate and rhythm without murmurs, rubs, or gallops. Peripheral pulses 2+ and equal bilaterally. ABDOMINAL: Soft, nontender with palpation, nondistended, no hepatosplenomegaly. Normoactive BS. MUSCULOSKELETAL: Moves all extremities. Strength/ROM intact without gross deformities. SKIN: Warm, dry, normal color. No rashes. NEURO: A&O X 1. Speech clear. No ataxic movements. PSYCHIATRIC: Minimal interaction with staff during time of examination. Course Vital Signs Vital signs: Vital Signs Temperature 36.7 C 06/21/24 21:00 Pulse Rate 82 06/21/24 21:00 Respiratory Rate 22 H 06/21/24 21:00 Blood Pressure 176/138 H 06/21/24 21:00 Pulse Oximetry 98 06/21/24 21:00 Oxygen Delivery Room Air 06/21/24 21:00 Temperature 36.5 C 06/22/24 02:14 Pulse Rate 71 06/22/24 02:14 Respiratory Rate 18 06/22/24 02:14 Blood Pressure 158/83 H 06/22/24 02:14 Pulse Oximetry 99 06/22/24 02:14 Oxygen Delivery Room Air 06/21/24 21:39 MDM - Nausea/Vomiting/Diarrhea MDM Narrative Medical decision making narrative: Patient is an 84-year-old female who presents to the ER with concerns of vomiting and diarrhea. Her nephew is with her during time of exam and he reports there was not a nurse at her memory care unit this evening so the accounting manager assistant controller called the EMS after patient started vomiting and having diarrhea for about 5 hours. Patient's nephew reports she has had dementia since 2018 and was recently placed on hospice. He reports hospice was initiated because patient had stopped taking her medications. Patient's nephew reports patient is usually pleasantly confused but tonight she has been combative. He is unaware of any recent fevers, congestion, or coughing. Patient's nephew reports this GI bug has been going around the memory care unit. Labs Ordered: none needed Imaging Ordered: none needed Diagnosis: viral gastroenteritis Patient Education/Shared MDM: An extensive amount of time was spent with patient's nephew discussing patient's treatment while she was in the ER. It was explained to patient's nephew that there was low concern for dehydration as patient's heart rate had remained in the 70s to 80s range, she had been voiding prior to the vomiting/diarrhea, and the symptoms have only been going on for approximately 5 hours. Patient's nephew was given the option as to whether not he would like blood work done, respiratory swabs performed, a urinalysis performed, or imaging. He was uncertain what to do, but eventually as shared decision was made between CVICU RN and patient's nephew. It was agreed upon the patient be given Zofran ODT. After administration she would have a p.o. challenge. If patient was able to tolerate the p.o. challenge then she would be discharged home. On the other hand, if patient with unable to tolerate the p.o. challenge, then further plans for evaluation would be discussed. Patient's nephew verbalized understanding and is in agreement with plan. 0200- Patient has not had any episodes vomiting or diarrhea while in the ER. She tolerated her p.o. challenge well. Patient will be discharged back to her memory care unit with a prescription for Zofran ODT. Prescription printed out and will be sent back with patient. Patient's nephew is no longer present at bedside. Patient is sleeping soundly on stretcher at this time. Vital signs stable at time of discharge. Differential Diagnosis Differential diagnosis: Likely traveler's diarrhea, food poisoning, gastroenteritis, drug-induced nausea and vomiting and dehydration Discharge Plan Discharge Clinical Impression: Gastroenteritis Diarrhea Qualifiers: Diarrhea type: unspecified type Qualified Code(s): R19.7 - Diarrhea, unspecified Patient Disposition: NH Retirement/Asst Living Condition: Stable Instructions: Antibiotic Form, Acute Nausea and Vomiting (ED), Acute Diarrhea (ED) Additional Instructions: Please return to the ER with any worsening symptoms. Follow-up with primary care provider in the next 2-3 days. Take all medications as prescribed. Patient Language: Citizen Of [place] Prescriptions: New ondansetron 4 mg tablet,disintegrating 4 mg PO Q8H PRN (Reason: nausea and vomiting) Qty: 10 0RF ondansetron 4 mg tablet,disintegrating 4 mg PO Q8H PRN (Reason: nausea and vomiting) Qty: 10 0RF No Action amlodipine benzoate 5 mg PO DAILY Allergy Relief (loratadine) 10 mg PO DAILY famotidine 10 mg Tablet 10 mg PO DAILY donepezil 10 mg Tablet 10 mg PO HS lisinopril 20 mg Tablet 20 mg PO DAILY escitalopram oxalate [Lexapro] 10 mg Tablet 10 mg PO DAILY divalproex 125 mg PO TID Rx Instructions: 1 TAB TWICE DAILY, 2 TABS HS memantine 10 mg PO BID polyethylene glycol 3350 17 gram Powder In Packet 17 g PO DAILY pravastatin 40 mg Tablet 60 mg PO HS pentoxifylline 400 mg Tablet Extended Release 400 mg PO TID Rx Instructions: TAKE WITH MEALS cholecalciferol (vitamin D3) [Vitamin D3] 25 mcg (1,000 unit) Tablet 25 mcg PO DAILY quetiapine 50 mg PO BID bisacodyl 10 mg Suppository 10 mg RECTAL QAM PRN (Reason: Constipation) Qty: 10 0RF Follow-up/Referrals: Stone,Marcelle Guillory, [employer] MANAGER-[employer] [Primary Care Provider] - Stand Alone Forms: Correction Discharge Time of Disposition: 02:14
[2024-06-21] MEDS: ONDANSETRON HCL ODT 4 MG TABLET PO (23:08)
--- NOTE | 2024-06-22 00:15 | PC.NURSE ---
care and report given to ALBERT Lagunas. all questions answered.
[2024-06-22 02:14] VITALS: BP 158/83; PULSE 71; RESP 18; TEMP 36.5; O2SAT 99
[2024-06-22 04:31] VITALS: BP 166/78; PULSE 70; RESP 16; TEMP 36.6; O2SAT 97
== END 2024-06-22 05:53 ==
PROVIDERS: Emergency Provider Registered Nurse; PCP Nurse Practitioner Family
DX: K52.9 Noninfective gastroenteritis and colitis, unspecified (principal); E78.5 Hyperlipidemia, unspecified; J44.9 Chronic obstructive pulmonary disease, unspecified; K21.9 Gastro-esophageal reflux disease without esophagitis; I10 Essential (primary) hypertension; F01.518 Vascular dementia, unspecified severity, with other behavioral disturbance
CPT/HCPCS: 99284; A9270